=== PATIENT | male | born 1965 | race Asian ===

== ENCOUNTER 2020-04-22 14:08 | Inpatient (IN) | payer OTHER ==
[~2020-04-22] VITALS: Ht 177.8 cm; Wt 92.5 kg
[2020-04-22 14:56] VITALS: Ht 177.8 cm; Wt 92.5 kg
[2020-04-22 15:12] LABS: CALCIUM 9.4 mg/dL (8.5-10.1); CARBON DIOXIDE 26.4 mmol/L (21-32); CHLORIDE SERUM 103 mmol/L (98-107); CREATININE SERUM 1.2 mg/dL (0.7-1.3); GFR1 > 60 mL/min; GLUCOSE SERUM 148 mg/dL (74-106); POTASSIUM SERUM 3.8 mmol/L (3.5-5.1); SODIUM SERUM 138 mmol/L (136-145)
[2020-04-22 15:20] LABS: BASOPHIL % 0.3 % (0-2); PLATELET COUNT 386 x10^3mcL (130-400); RED CELL DISTRIBUTION WIDTH 13.3 % (11.5-14.5)
[2020-04-22 15:25] LABS: ALBUMIN 2.6 g/dL (3.4-5.0); ALKALINE PHOSPHATASE 74 U/L (46-116); ALT/SGPT 29 U/L (16-63); AST/SGOT 38 U/L (15-37); BILIRUBIN TOTAL 0.44 mg/dL (0.20-1.00); LACTIC DEHYDROGENASE (LDH) 388 U/L (100-190); TOTAL PROTEIN, SERUM 7.3 g/dL (6.4-8.2)
[2020-04-22 15:56] LABS: C REACTIVE PROTEIN 29.9 mg/dL (<=0.9)
[2020-04-22 17:11] LABS: CHOLESTEROL/HDL RATIO 5.2; MAGNESIUM 1.7 mg/dL (1.8-2.4); PHOSPHOROUS 2.5 mg/dL (2.5-4.9)
[2020-04-22 21:03] LABS: microscopic required? NO
[2020-04-22 21:27] LABS: UA SPECIFIC GRAVITY 1.015 (1.005-1.035); urine erythrocyte NEGATIVE (NEGATIVE)
[2020-04-22 21:35] LABS: AMPHETAMINE QUAL UR NONE DETECTED (See below)
[2020-04-22 22:11] VITALS: BP 133/88
[2020-04-23 06:34] VITALS: BP 113/78
[2020-04-23 08:10] LABS: CALCIUM 9.3 mg/dL (8.5-10.1); CHLORIDE SERUM 104 mmol/L (98-107); GFR1 > 60 mL/min; GLUCOSE SERUM 130 mg/dL (74-106); MAGNESIUM 1.7 mg/dL (1.8-2.4); PHOSPHOROUS 2.5 mg/dL (2.5-4.9); POTASSIUM SERUM 4.1 mmol/L (3.5-5.1); SODIUM SERUM 138 mmol/L (136-145)
[2020-04-23 08:33] VITALS: BP 134/85
[2020-04-23 09:02] LABS: BASOPHIL % 0.4 % (0-2); PLATELET COUNT 380 x10^3mcL (130-400); RED CELL DISTRIBUTION WIDTH 13.1 % (11.5-14.5)
[2020-04-23 13:13] VITALS: BP 140/90
[2020-04-23 17:22] VITALS: BP 136/85
[2020-04-23 21:33] VITALS: BP 137/86
[2020-04-24 05:50] VITALS: BP 143/92
[2020-04-24 07:02] LABS: BASOPHIL % 0.4 % (0-2); RED CELL DISTRIBUTION WIDTH 12.5 % (11.5-14.5)
[2020-04-24 07:20] LABS: ALKALINE PHOSPHATASE 64 U/L (46-116); ALT/SGPT 31 U/L (16-63); AST/SGOT 48 U/L (15-37); BILIRUBIN DIRECT 0.12 mg/dL (0.0-0.2); BILIRUBIN TOTAL 0.3 mg/dL (0.20-1.00); CARBON DIOXIDE 26.9 mmol/L (21-32); CHLORIDE SERUM 103 mmol/L (98-107); CREATININE SERUM 0.9 mg/dL (0.7-1.3); GFR1 > 60 mL/min; GLUCOSE SERUM 163 mg/dL (74-106); MAGNESIUM 1.9 mg/dL (1.8-2.4); PHOSPHOROUS 2.7 mg/dL (2.5-4.9); POTASSIUM SERUM 3.6 mmol/L (3.5-5.1); SODIUM SERUM 138 mmol/L (136-145); TOTAL PROTEIN, SERUM 6.5 g/dL (6.4-8.2)
[2020-04-24 07:23] LABS: ALBUMIN 2.4 g/dL (3.4-5.0); PLATELET COUNT 439 x10^3mcL (130-400)
[2020-04-24 08:05] VITALS: BP 131/89
[2020-04-24 11:53] VITALS: BP 137/90
[2020-04-24 15:51] VITALS: BP 124/84
[2020-04-24 20:16] VITALS: BP 139/82; BP 1396/84
[2020-04-25 05:37] VITALS: BP 148/91
[2020-04-25 07:53] VITALS: BP 139/87
[2020-04-25 08:14] LABS: BASOPHIL % 0.3 % (0-2)
[2020-04-25 08:52] LABS: PLATELET COUNT 470 x10^3mcL (130-400)
[2020-04-25 10:43] LABS: ALKALINE PHOSPHATASE 64 U/L (46-116); ALT/SGPT 34 U/L (16-63); AST/SGOT 32 U/L (15-37); BILIRUBIN TOTAL 0.2 mg/dL (0.20-1.00); CALCIUM 9.2 mg/dL (8.5-10.1); CARBON DIOXIDE 28.2 mmol/L (21-32); CHLORIDE SERUM 106 mmol/L (98-107); GFR1 > 60 mL/min; GLUCOSE SERUM 174 mg/dL (74-106); POTASSIUM SERUM 3.9 mmol/L (3.5-5.1); SODIUM SERUM 141 mmol/L (136-145)
[2020-04-25 10:49] LABS: ALBUMIN 2.5 g/dL (3.4-5.0); TOTAL PROTEIN, SERUM 5.8 g/dL (6.4-8.2)
[2020-04-25 11:31] VITALS: BP 108/77
[2020-04-25 16:19] VITALS: BP 116/86
[2020-04-25 22:05] VITALS: BP 135/82
[2020-04-26 05:37] VITALS: BP 127/85
[2020-04-26 07:52] LABS: CALCIUM 8.9 mg/dL (8.5-10.1); CARBON DIOXIDE 27.6 mmol/L (21-32); CHLORIDE SERUM 105 mmol/L (98-107); GFR1 > 60 mL/min; GLUCOSE SERUM 120 mg/dL (74-106); MAGNESIUM 2.1 mg/dL (1.8-2.4); PHOSPHOROUS 4.4 mg/dL (2.5-4.9); POTASSIUM SERUM 3.4 mmol/L (3.5-5.1); SODIUM SERUM 140 mmol/L (136-145)
[2020-04-26 08:16] LABS: BILIRUBIN DIRECT 0.13 mg/dL (0.0-0.2); BILIRUBIN TOTAL 0.3 mg/dL (0.20-1.00)
[2020-04-26 08:19] LABS: BASOPHIL % 0.3 % (0-2); RED CELL DISTRIBUTION WIDTH 13.2 % (11.5-14.5)
[2020-04-26 08:21] LABS: ALBUMIN 2.5 g/dL (3.4-5.0); TOTAL PROTEIN, SERUM 5.7 g/dL (6.4-8.2)
[2020-04-26 09:00] LABS: PLATELET COUNT 524 x10^3mcL (130-400)
[2020-04-26 09:14] VITALS: BP 120/81
[2020-04-26 13:29] VITALS: BP 133/80
[2020-04-26 16:51] VITALS: BP 114/81
[2020-04-26 20:40] VITALS: BP 113/77
[2020-04-27 04:54] VITALS: BP 129/91
[2020-04-27 06:49] LABS: BASOPHIL % 0.2 % (0-2); RED CELL DISTRIBUTION WIDTH 13.4 % (11.5-14.5)
[2020-04-27 07:38] LABS: BILIRUBIN DIRECT 0.11 mg/dL (0.0-0.2); BILIRUBIN TOTAL 0.4 mg/dL (0.20-1.00)
[2020-04-27 07:41] LABS: ALBUMIN 2.5 g/dL (3.4-5.0)
[2020-04-27 08:28] VITALS: BP 127/85
[2020-04-27 08:50] LABS: TOTAL PROTEIN, SERUM 6.4 g/dL (6.4-8.2)
[2020-04-27 08:53] LABS: PLATELET COUNT 560 x10^3mcL (130-400)
[2020-04-27 09:28] LABS: CALCIUM 9.6 mg/dL (8.5-10.1); CHLORIDE SERUM 103 mmol/L (98-107); GFR1 > 60 mL/min; GLUCOSE SERUM 131 mg/dL (74-106); MAGNESIUM 2.2 mg/dL (1.8-2.4); PHOSPHOROUS 4.5 mg/dL (2.5-4.9); POTASSIUM SERUM 4.1 mmol/L (3.5-5.1); SODIUM SERUM 141 mmol/L (136-145)
[2020-04-27 12:45] VITALS: BP 111/78
[2020-04-27] MEDS ORDERED: LEVIMIR SQ (13:16)
[2020-04-27] MEDS ORDERED: OMEPRAZOLE MAGN20 M1 PO (13:17)
[2020-04-27] MEDS ORDERED: ATORVASTATIN CA10 M1 PO (13:18)
[2020-04-27] MEDS ORDERED: FORTAMET500 M1 PO (13:19)
[2020-04-27] MEDS ORDERED: PROBENECID AND1 TAB PO (13:21)
[2020-04-27] MEDS ORDERED: NOR5 PO (13:21)
[2020-04-27] MEDS ORDERED: CHLORTHALIDONE25 MG PO (16:03)
[2020-04-27] MEDS ORDERED: FENOFIBRATE MI130 MG PO (16:05)
[2020-04-27 16:58] VITALS: BP 104/63
[2020-04-27 20:45] VITALS: BP 124/86
[2020-04-28 05:44] VITALS: BP 127/86
[2020-04-28 08:15] VITALS: BP 121/81
[2020-04-28 09:09] LABS: BASOPHIL % 0.3 % (0-2)
[2020-04-28 09:23] LABS: CALCIUM 9.5 mg/dL (8.5-10.1); CARBON DIOXIDE 30.1 mmol/L (21-32); CHLORIDE SERUM 105 mmol/L (98-107); CREATININE SERUM 0.9 mg/dL (0.7-1.3); GFR1 > 60 mL/min; GLUCOSE SERUM 124 mg/dL (74-106); POTASSIUM SERUM 4.2 mmol/L (3.5-5.1); SODIUM SERUM 140 mmol/L (136-145)
[2020-04-28 12:00] VITALS: BP 104/72
[2020-04-28 14:36] LABS: PLATELET COUNT 605 x10^3mcL (130-400)
[2020-04-28 16:30] VITALS: BP 103/78
[2020-04-28 20:30] VITALS: BP 108/73
[2020-04-29 05:00] VITALS: BP 113/77
[2020-04-29 07:05] LABS: BASOPHIL % 0.2 % (0-2); RED CELL DISTRIBUTION WIDTH 13.4 % (11.5-14.5)
[2020-04-29 07:22] LABS: CALCIUM 9.2 mg/dL (8.5-10.1); CARBON DIOXIDE 26.3 mmol/L (21-32); CHLORIDE SERUM 103 mmol/L (98-107); CREATININE SERUM 0.9 mg/dL (0.7-1.3); GFR1 > 60 mL/min; GLUCOSE SERUM 109 mg/dL (74-106); POTASSIUM SERUM 3.5 mmol/L (3.5-5.1); SODIUM SERUM 138 mmol/L (136-145)
[2020-04-29 07:40] LABS: PLATELET COUNT 590 x10^3mcL (130-400)
[2020-04-29 08:13] VITALS: BP 112/73
[2020-04-29] MEDS ORDERED: LIPI20 PO (10:03)
[2020-04-29] MEDS ORDERED: VENTOLIN H0.09 MG/A1 INH (10:03)
[2020-04-29] MEDS ORDERED: MUCINEX600 MG PO (10:03)
[2020-04-29] MEDS ORDERED: LANTI SQ (10:04)
[2020-04-29] MEDS ORDERED: DECADRON6 MG PO (10:05)
[2020-04-29] MEDS ORDERED: ASPIR-TRIN325 MG PO (10:05)
[2020-04-29 10:25] VITALS: BP 112/73
== END 2020-04-29 11:50 | disposition home or self-care (01) | DRG 871 ==
LOC: ED 14:08 → DU 15:57
PROVIDERS: Family Medicine; Internal Medicine Infectious Disease; Specialist; ADMIT Internal Medicine; ATTEND Internal Medicine
DX: A41.9 Sepsis, unspecified organism (principal); U07.1 COVID-19; J96.00 Acute respiratory failure, unspecified whether with hypoxia or hypercapnia; E44.1 Mild protein-calorie malnutrition
CPT/HCPCS: 36600; 82962; 83880; 85378; 87804; G0378; J0456; J0696; J1100; J1650; J1815; J3535; J7030; J7040; J7050; U0003